=== PATIENT | male | born 1965 | race Caucasian/White ===

== ENCOUNTER 2016-12-31 18:12 | Inpatient (IN) | payer OTHER ==
[~2016-12-31] VITALS: Ht 175.3 cm; Wt 88.9 kg
[~2016-12-31 18:12] MED LIST: DEXAMETHASONE SOD PHOS 4 MG/ML VIAL IV ONE; GENTAMICIN SULFATE 80 MG/2 ML VIAL OTHER ONE; LACTATED RINGER'S 1000 ML INJ 2,000 ML IV ONE; LIDOCAINE HCL 1% PF 5 ML AMPULE OTHER ONE; MIDAZOLAM HCL 2 MG/2 ML VIAL IV ONE; ONDANSETRON HCL 4 MG/2 ML VIAL IV PUSH ONE; PROPOFOL 200 MG/20 ML AMP IV ONE; ROCURONIUM INJ 50 MG/5 ML SYRINGE IV PUSH ONE; fentaNYL CITRATE 250 MCG/5 ML AMP IV ONE
[2016-12-31 18:13] VITALS: BP 122/92; PULSE 103; RESP 20; TEMP 99.9; O2SAT 100
--- NOTE | 2016-12-31 19:30 | PD ---
HPI Chief Complaint: Abdominal Pain Time Seen by Provider: 19:12 Travel History International Travel<30 days: No Contact w/Intl Traveler<30days: No Traveled to known affect area: No History of Present Illness HPI Patient is a 51-year-old male with a history of cholecystitis and cholecystectomy presents emergency Department with abdominal pain nausea vomiting constipation for the past 4 days. Patient's also been having some chills did take Tylenol prior to arrival. Patient was seen by his physician's RAIL DOWELING MACHINE OPERATOR who suspected acute appendicitis today and referred him to the emergency department. Patient does endorse nausea without vomiting. Denies any blood in the stool. He does endorse right lower quadrant abdominal pain cramping in nature which initially started in the epigastric area. He states she's had pain like this in the past which was a gallstone flare but states she's not had in some time and this is more intense. PFSH Past Medical History Medical History: Denies Significant Hx Tetanus Vaccination: < 5 Years Past Surgical History Abdominal Surgery: Yes Cholecystectomy: Yes Social History Alcohol Use: No Tobacco Use: No Substance Use: No Allergies-Medications (Allergen,Severity, Reaction): Coded Allergies: morphine (Verified Allergy, Unknown, 12/31/16) Reported Meds & Prescriptions Reported Meds & Active Scripts Active No Active Prescriptions or Reported Medications Review of Systems Except as stated in HPI: all other systems reviewed are Neg Physical Exam Narrative GENERAL: Well-developed, uncomfortable in no obvious distress. Ill appearance. SKIN: Focused skin assessment warm/dry. HEAD: Atraumatic. Normocephalic. EYES: Pupils equal and round. No scleral icterus. No injection or drainage. ENT: No nasal bleeding or discharge. Mucous membranes pink and moist. NECK: Trachea midline. No JVD. CARDIOVASCULAR: Regular rate and rhythm. No murmur appreciated. RESPIRATORY: No accessory muscle use. Clear to auscultation. Breath sounds equal bilaterally. GASTROINTESTINAL: Abdomen soft, moderately tender in the right lower quadrant. moderately distended tympanic to percussion.. Hepatic and splenic margins not palpable. No peritoneal signs. MUSCULOSKELETAL: No obvious deformities. No clubbing. No cyanosis. No edema. NEUROLOGICAL: Awake and alert. No obvious cranial nerve deficits. Motor grossly within normal limits. Normal speech. PSYCHIATRIC: Appropriate mood and affect; insight and judgment normal. Data Data Last Documented VS Vital Signs Date Time Temp Pulse Resp B/P (MAP) Pulse Ox O2 Delivery O2 Flow Rate FiO2 12/31/16 20:09 89 18 140/79 (99) 98 Room Air 12/31/16 18:13 99.9 Orders Orders Complete Blood Count With Diff (12/31/16 19:34) Comprehensive Metabolic Panel (12/31/16 19:34) Lipase (12/31/16 19:34) Lactic Acid (12/31/16 19:34) Prothrombin Time / Inr (Pt) (12/31/16 19:34) Act Partial Throm Time (Ptt) (12/31/16 19:34) Urinalysis - C+S If Indicated (12/31/16 19:34) Ct Abd/Pel W Iv Contrast(Rout) (12/31/16 19:34) Iv Access Insert/Monitor (12/31/16 19:34) Ecg Monitoring (12/31/16 19:34) Oximetry (12/31/16 19:34) Hydromorphone Pf Inj (Dilaudid Pf Inj) (12/31/16 19:45) Ondansetron Inj (Zofran Inj) (12/31/16 19:45) Sodium Chlor 0.9% 1000 Ml Inj (Ns 1000 M (12/31/16 19:34) Sodium Chloride 0.9% Flush (Ns Flush) (12/31/16 19:45) Electrocardiogram (12/31/16 19:34) Iohexol 350 Inj (Omnipaque 350 Inj) (12/31/16 19:49) Piperacil-Tazo 4.5 Gm Premix (Zosyn 4.5 (12/31/16 20:45) Admit Order (Ed Use Only) (12/31/16 ) Labs Laboratory Tests Test 12/31/16 19:15 12/31/16 20:00 White Blood Count 18.3 TH/MM3 Red Blood Count 4.69 MIL/MM3 Hemoglobin 13.8 GM/DL Hematocrit 41.8 % Mean Corpuscular Volume 89.2 FL Mean Corpuscular Hemoglobin 29.3 PG Mean Corpuscular Hemoglobin Concent 32.9 % Red Cell Distribution Width 13.5 % Platelet Count 178 TH/MM3 Mean Platelet Volume 8.1 FL CBC Comment AUTO DIFF Differential Total Cells Counted 100 Neutrophils % (Manual) 83 % Band Neutrophils % 6 % Lymphocytes % 5 % Monocytes % 6 % Neutrophils # (Manual) 16.3 TH/MM3 Differential Comment FINAL DIFF MANUAL Platelet Morphology Comment NORMAL Red Cell Morphology Comment NORMAL Blood Urea Nitrogen 19 MG/DL Creatinine 1.21 MG/DL Random Glucose 132 MG/DL Total Protein 8.5 GM/DL Albumin 3.9 GM/DL Calcium Level 9.7 MG/DL Alkaline Phosphatase 110 U/L Aspartate Amino Transf (AST/SGOT) 23 U/L Alanine Aminotransferase (ALT/SGPT) 37 U/L Total Bilirubin 1.6 MG/DL Sodium Level 133 MEQ/L Potassium Level 3.7 MEQ/L Chloride Level 100 MEQ/L Carbon Dioxide Level 22.7 MEQ/L Anion Gap 10 MEQ/L Estimat Glomerular Filtration Rate 63 ML/MIN Lipase 92 U/L Prothrombin Time 13.0 SEC Prothromb Time International Ratio 1.2 RATIO Activated Partial Thromboplast Time 29.9 SEC Lactic Acid Level 2.1 mmol/L MDM Medical Decision Making Medical Screen Exam Complete: Yes Emergency Medical Condition: Yes Differential Diagnosis Pancreatitis, diverticulitis, intra-abdominal abscess. Narrative Course Patient roomed emergency department, highly suspect appendicitis on this patient , CAT scan confirms with a complication of periappendiceal abscess. Films were reviewed by Dr. Sanchez all her plan is for surgery. He does have an elevated white blood cell count lactic acid normal. Started on Zosyn and normal saline was given. Last 24 hours Impressions Abdomen/Pelvis CT 12/31/161933 Signed Impressions: Service Date/Time: Saturday, December 31, 2016 19:46 - CONCLUSION: 1. Acute appendicitis with a small periappendiceal abscess. Please see above. 2. No other acute abnormalities are demonstrated. Previous cholecystectomy. Fat complaining umbilical hernia. Danial Walton MD Diagnosis Primary Impression: Appendicitis Scripts No Active Prescriptions or Reported Meds Disposition: DISCHARGE HOME Condition: Stable Silvestre Mckinney MD Dec 31, 2016 19:30
[2016-12-31] MEDS ORDERED: SODIUM CHLOR 0.9% 1000 ML INJ 1,000 ML IV SCH (19:34)
[2016-12-31] MEDS ORDERED: HYDROmorphone HCL PF 2 MG/ML VIAL IVS ONE (19:45)
[2016-12-31] MEDS ORDERED: ONDANSETRON HCL 4 MG/2 ML VIAL IVP ONE (19:45)
[2016-12-31] MEDS ORDERED: SODIUM CHLORIDE 0.9% FLUSH 10 ML FLUSH IV FLUSH PRN (19:45)
[2016-12-31] MEDS ORDERED: IOHEXOL 350 MG/ML 10 ML VIAL (for RAD DIAG) IVCONTRAST ONE (19:49)
[2016-12-31 20:02] LABS: HEMATOCRIT 41.8 % (39.0-51.0); MEAN CELL VOLUME 89.2 FL (80.0-100.0); MEAN CORPUSCULAR HEMOGLOBIN 29.3 PG (27.0-34.0); MEAN CORPUSCULAR HGB CONC 32.9 % (32.0-36.0); PLATELET COUNT 178 TH/MM3 (150-450); RED BLOOD COUNT 4.69 MIL/MM3 (4.50-5.90); RED CELL DISTRIBUTION WIDTH 13.5 % (11.6-17.2); WHITE BLOOD COUNT 18.3 TH/MM3 (4.0-11.0)
[2016-12-31 20:07] LABS: HEMO FLAGS AUTO DIFF
[2016-12-31 20:08] VITALS: O2SAT 98
[2016-12-31 20:09] VITALS: BP 140/79; PULSE 89; RESP 18; O2SAT 98
--- NOTE | 2016-12-31 20:15 | RADRPT ---
EXAM DATE/TIME: 12/31/2016 19:46 [facility] COMPARISON: No previous studies available for comparison. INDICATIONS : Right lower quadrant abdomen pain. IV CONTRAST: 100 cc Omnipaque 350 (iohexol) IV ORAL CONTRAST: No oral contrast ingested. RADIATION DOSE: 8.00 CTDIvol (mGy) MEDICAL HISTORY : None SURGICAL HISTORY : Cholecystectomy. ENCOUNTER: Initial ACUITY: 1 day PAIN SCALE: 8/10 LOCATION: Right lower quadrant abdomen TECHNIQUE: Volumetric scanning of the abdomen and pelvis was performed. Using automated exposure control and ad justment of the mA and/or kV according to patient size, radiation dose was kept as low as reasonably achievable to obtain optimal diagnostic quality images. DICOM format image data is available electro nically for review and comparison. FINDINGS: LOWER LUNGS: The visualized lower lungs are clear. LIVER: Homogeneous density without lesion. There is no dilation of the biliary tree. Previous cholecystecto my. SPLEEN: Normal size without lesion. PANCREAS: Within normal limits. KIDNEYS: Normal in size and shape. There is no mass, stone or hydronephrosis. ADRENAL GLANDS: Within normal limits. VASCULAR: There is no aortic aneurysm. BOWEL/MESENTERY: Indurated appendix with surrounding fat stranding and shotty right lower quadrant mesenteric lymph no natan. Probable fecalith at the base of the appendix small pocket of fluid and gas seen adjacent to the appendix measuring 11 x 23 x 35 mm in size compatible with an abscess. No obstruction or large free air. There is small free fluid in the pelvic cavity. ABDOMINAL WALL: There is a fat containing umbilical hernia that measures 4.4 cm across. No bowel herniation. RETROPERITONEUM: There is no lymphadenopathy. BLADDER: No wall thickening or mass. REPRODUCTIVE: Within normal limits. INGUINAL: There is no lymphadenopathy or hernia. MUSCULOSKELETAL: No acute bony abnormality demonstrated. Degenerative changes and a few scattered benign hemangiomas a re seen of the spine. CONCLUSION: 1. Acute appendicitis with a small periappendiceal abscess. Please see above. 2. No other acute abnormalities are demonstrated. Previous cholecystectomy. Fat complaining umbilical hernia. Danial Walton MD on December 31, 2016 at 20:10 Board Certified Radiologist. This report was verified electronically.
[2016-12-31 20:19] LABS: ANION GAP 10 MEQ/L (5-15); AST (GOT) 23 U/L (15-37); BICARBONATE 22.7 MEQ/L (21.0-32.0); BLOOD UREA NITROGEN 19 MG/DL (7-18); CHLORIDE 100 MEQ/L (98-107); GLOMERULAR FILTRATION RATE 63 ML/MIN (>89); POTASSIUM 3.7 MEQ/L (3.5-5.1); SODIUM (NA) 133 MEQ/L (136-145)
[2016-12-31 20:20] LABS: ALT (GPT) 37 U/L (12-78)
[2016-12-31 20:23] LABS: ALKALINE PHOSPHATASE 110 U/L (45-117); TOTAL BILIRUBIN ADULT 1.6 MG/DL (0.2-1.0)
[2016-12-31 20:40] LABS: BANDS 6 % (0-6); NEUTROPHIL # MANUAL DIFF 16.3 TH/MM3 (1.8-7.7); POLYS (SEG NEUTROPHILS) 83 % (16-70); WBC DIFF SAMPLE 100
[2016-12-31 20:41] LABS: PLATELET MORPHOLOGY NORMAL (NORMAL); SCAN/DIFF FINAL DIFF MANUAL
[2016-12-31] MEDS ORDERED: PIPERACIL-TAZO 4.5 GM PREMIX 100 ML IV ONE (20:45)
[2016-12-31 20:58] LABS: APTT (PATIENT) 29.9 SEC (24.3-30.1); INTERNATIONAL NORMALIZED RATIO 1.2 RATIO
[2016-12-31] MEDS ORDERED: SODIUM CHLOR 0.9% 1000 ML INJ 1,000 ML IV ONE (21:15)
[2016-12-31 21:54] VITALS: BP 137/78; PULSE 87; RESP 18; O2SAT 98
[2016-12-31] MEDS ORDERED: SUGAMMADEX SODIUM 200 MG/2 ML VIAL IV PUSH ONE ×2 (23:38)
[2016-12-31 23:46] LABS: BLOOD, URINE NEG (NEG); COMMENT (UR) CULT NOT INDICATED; CULTURE IF INDICATED CULT NOT INDICATED; GLUCOSE,URINE NEG (NEG); KETONE, URINE NEG (NEG); NITRITE,URINE NEG (NEG); SQUAMOUS EPITHELIAL CELL URINE <1 /hpf (0-5); URINE COLOR YELLOW (YELLW/STRAW)
[2017-01-01] VITALS (8 sets, daily range): BP systolic 101–120; BP diastolic 65–69; PULSE 52–86; RESP 16–18; TEMP 95.2–98.1; O2SAT 93–97
[2017-01-01] MEDS ORDERED: DO NOT ADM ANY ANTICOAGULANT DRUGS PRN
[2017-01-01] MEDS ORDERED: diphenhydrAMINE HCL 50 MG/ML VIAL IV PRN (00:15)
[2017-01-01] MEDS ORDERED: SODIUM CHLORIDE 0.9% FLUSH 10 ML FLUSH IV FLUSH PRN (00:15)
[2017-01-01] MEDS ORDERED: BENZOCAINE 20% ORAL SPR 60 ML CAN MT PRN (00:15)
[2017-01-01] MEDS ORDERED: ONDANSETRON HCL 4 MG/2 ML VIAL IV PRN (00:15)
[2017-01-01] MEDS ORDERED: Post-op Orders (for Pharmacy) MISC XX ONE (00:15)
[2017-01-01] MEDS ORDERED: IBUPROFEN 400 MG TAB PO PRN (00:15)
[2017-01-01] MEDS ORDERED: KETOROLAC TROMETHAMINE 30 MG/ML (IVP) VIAL IV PUSH PRN (00:15)
[2017-01-01] MEDS ORDERED: NALOXONE HCL 0.4 MG/ML AMP IV PUSH PRN (00:15)
[2017-01-01] MEDS ORDERED: MAGNESIUM HYDROXIDE SUSP 30 ML CUP PO PRN (00:15)
[2017-01-01] MEDS: D5-NS + KCL 20 MEQ INJ 1,000 ML IV SCH ×4 (00:30→23:34)
[2017-01-01] MEDS: ACETAMINOPHEN 1000 MG/100 ML VIAL IV SCH ×5 (00:45→23:34)
[2017-01-01] MEDS: PIPERACIL-TAZO 3.375 GM PREMIX 50 ML IV SCH ×4 (04:07→20:29)
[2017-01-01] MEDS: metroNIDAZOLE 500 MG TAB PO SCH ×4 (05:31→23:34)
--- NOTE | 2017-01-01 06:30 | MH ---
cc: KEYSHAWN HOLLEY DATE OF ADMISSION: 12/31/2016 CHIEF COMPLAINT Acute appendicitis. HISTORY OF PRESENT ILLNESS The patient is a 51-year-old male who was in his normal state of health until 40 hours ago he developed development of increasingly severe right lower quadrant pain. The patient is a does have some chronic pain ever since a cholecystectomy was performed several years ago. He states that his pain was different and worse. The patient denies nausea, vomiting, fevers, chills, night sweats, diarrhea, constipation and hematomesis. He underwent work up at [facility] emergency department with a CT scan which did show acute appendicitis with rupture as well as an elevated white blood cell count on laboratory values. General surgery was consulted in the emergency department. REVIEW OF SYSTEMS 12-point review of systems, discussed with the patient and he is negative except for the pertinent positives mentioned above in history present illness. PAST MEDICAL HISTORY None PAST SURGICAL HISTORY Cholecystectomy laparoscopic, multiple ERCP for complications. ALLERGIES MORPHINE HOME MEDICATIONS: None. SOCIAL HISTORY: The patient denies alcohol, tobacco or illicit drug use. PHYSICAL EXAMINATION VITAL SIGNS: Temperature 99.9 degrees, pulse 89 lesser rate 18, blood pressure 140/79. IN GENERAL: The patient is a well-developed, well-nourished male in no acute distress. He appears uncomfortable and does not appear chronically ill. HEAD, EYES, EARS, NOSE, AND THROAT: Head is normocephalic, atraumatic. Pupils round, to light. Sclerae is anicteric. Mucous membranes moist. NECK: Neck is supple. No JVD. LUNGS: Clear to auscultation bilaterally. Nonlabored breathing pattern. HEART: The heart is a regular rhythm. ABDOMEN: The abdomen is soft. He is tender to palpation, focal rebound tenderness in the right lower quadrant and signs of peritonitis. There is no diffuse peritonitis or rigid abdomen. There is some multiple surgical scars consistent with previous cholecystectomy. No hernias. BACK: No CVA tenderness. Extremities: No clubbing, cyanosis or edema. NEUROLOGIC: He is awake, alert and oriented x3. Nonfocal peripheral exam. Cranial nerves II-XII are grossly intact. ASSESSMENT/PLAN The patient is a 51-year-old male with 2 days right lower quadrant pain and concerning for ruptured appendicitis on CT scan. I discussed with the patient options including operative nonoperative management. I did recommend proceeding to the operating room with for laparoscopic appendectomy and drainage of intra-abdominal abscess. The discussed the risks and benefits and alternatives including high risk of recurrent infection and complications due to the perforated nature of the appendicitis. The patient and his agree and undergo the procedure. We will proceed to the operating room emergently for appendectomy. We will keep the patient n.p.o.. Continue IV fluids and antibiotics. MD RACHELLE Kessler/josey /12:16 AM /6:21 AM
--- NOTE | 2017-01-01 08:46 | HHI.PR ---
Subjective Subjective Notes feels better Objective Vitals/I&O Vital Signs Date Time Temp Pulse Resp B/P (MAP) Pulse Ox O2 Delivery O2 Flow Rate FiO2 01/01/17 04:00 95.8 70 17 101/65 (77) 97 01/01/17 00:45 Nasal Cannula 4 Labs Laboratory Tests Test 12/31/16 19:15 12/31/16 20:00 12/31/16 21:49 White Blood Count 18.3 Red Blood Count 4.69 Hemoglobin 13.8 Hematocrit 41.8 Mean Corpuscular Volume 89.2 Mean Corpuscular Hemoglobin 29.3 Mean Corpuscular Hemoglobin Concent 32.9 Red Cell Distribution Width 13.5 Platelet Count 178 Mean Platelet Volume 8.1 CBC Comment AUTO DIFF Differential Total Cells Counted 100 Neutrophils % (Manual) 83 Band Neutrophils % 6 Lymphocytes % 5 Monocytes % 6 Neutrophils # (Manual) 16.3 Differential Comment FINAL DIFF MANUAL Platelet Morphology Comment NORMAL Red Cell Morphology Comment NORMAL Blood Urea Nitrogen 19 Creatinine 1.21 Random Glucose 132 Total Protein 8.5 Albumin 3.9 Calcium Level 9.7 Alkaline Phosphatase 110 Aspartate Amino Transf (AST/SGOT) 23 Alanine Aminotransferase (ALT/SGPT) 37 Total Bilirubin 1.6 Sodium Level 133 Potassium Level 3.7 Chloride Level 100 Carbon Dioxide Level 22.7 Anion Gap 10 Estimat Glomerular Filtration Rate 63 Lipase 92 Prothrombin Time 13.0 Prothromb Time International Ratio 1.2 Activated Partial Thromboplast Time 29.9 Lactic Acid Level 2.1 Urine Color YELLOW Urine Turbidity CLEAR Urine pH 6.0 Urine Specific [place] GREATER THAN 1.050 Urine Protein 30 Urine Glucose (UA) NEG Urine Ketones NEG Urine Occult Blood NEG Urine Nitrite NEG Urine Bilirubin NEG Urine Urobilinogen LESS THAN 2.0 Urine Leukocyte Esterase NEG Urine RBC 1 Urine WBC LESS THAN 1 Urine Squamous Epithelial Cells <1 Microscopic Urinalysis Comment CULT NOT INDICATED Cardiovascular: Regular Lungs: Clear Abdomen: Non-distended, Post-op tenderness Extremities: No edema, Perfused A/P Assessment and Plan 56yo male s/p lap appy for complicated appendicitis, stable. drain clear pain ok OOB continue ABX possible DC Tuesday Jorge Maria MD Jan 01, 2017 08:46
[2017-01-01] MEDS: FAMOTIDINE 20 MG/2 ML VIAL IV PUSH SCH ×2 (08:53→20:29)
[2017-01-01] MEDS: SODIUM CHLORIDE 0.9% FLUSH 10 ML FLUSH IV FLUSH SCH ×2 (09:00→20:30)
--- NOTE | 2017-01-01 09:18 | EKG ---
Date Performed: 12/31/2016 Time Performed: 20:11:45 PTAGE: 51 years EKG: Sinus rhythm NONSPECIFIC T-WAVE ABNORMALITY BORDERLINE ECG NO PREVIOUS TRACING DOCTOR: Ricki Marshall Interpretating Date/Time 01/01/2017 09:17:44
[2017-01-01] MEDS: HEPARIN SODIUM - SQ 10,000 UNITS/ML VIAL SQ SCH (22:00)
[2017-01-02] VITALS: BP 107/62; PULSE 73; RESP 20; TEMP 96.1; O2SAT 97
[2017-01-02] MEDS: PIPERACIL-TAZO 3.375 GM PREMIX 50 ML IV SCH ×4 (01:54→19:46)
[2017-01-02] MEDS: metroNIDAZOLE 500 MG TAB PO SCH ×3 (06:09→18:05)
[2017-01-02] MEDS: ACETAMINOPHEN 1000 MG/100 ML VIAL IV SCH ×3 (06:09→18:08)
[2017-01-02] MEDS: HEPARIN SODIUM - SQ 10,000 UNITS/ML VIAL SQ SCH ×3 (06:10→21:45)
[2017-01-02 07:26] LABS: AUTOMATED NEUTROPHIL # 9.4 TH/MM3 (1.8-7.7); BASOPHIL % 0.2 % (0.0-2.0); EOSINOPHIL # 0.1 TH/MM3 (0-0.4); EOSINOPHIL % 0.9 % (0.0-4.0); HEMATOCRIT 34.7 % (39.0-51.0); HEMO FLAGS DIFF FINAL; LYMPH % 13.9 % (9.0-44.0); LYMPHOCYTE # 1.7 TH/MM3 (1.0-4.8); MEAN CELL VOLUME 89.3 FL (80.0-100.0); MEAN CORPUSCULAR HEMOGLOBIN 29.8 PG (27.0-34.0); MEAN CORPUSCULAR HGB CONC 33.4 % (32.0-36.0); MONO % 5.7 % (0.0-8.0); NEUT % 79.3 % (16.0-70.0); PLATELET COUNT 170 TH/MM3 (150-450); RED BLOOD COUNT 3.89 MIL/MM3 (4.50-5.90); RED CELL DISTRIBUTION WIDTH 13.8 % (11.6-17.2); WHITE BLOOD COUNT 11.9 TH/MM3 (4.0-11.0)
[2017-01-02 07:58] VITALS: O2SAT 96
[2017-01-02 08:00] VITALS: BP 110/74; PULSE 70; RESP 16; TEMP 96.9; O2SAT 95
[2017-01-02 08:07] LABS: BICARBONATE 21.2 MEQ/L (21.0-32.0); POTASSIUM 3.9 MEQ/L (3.5-5.1)
--- NOTE | 2017-01-02 08:28 | HHI.PR ---
Subjective Subjective Notes no acute issues, pain controlled diarrhea Objective Vitals/I&O Vital Signs Date Time Temp Pulse Resp B/P (MAP) Pulse Ox O2 Delivery O2 Flow Rate FiO2 01/02/17 07:58 96 21 01/02/17 00:00 96.1 73 20 107/62 (77) 01/01/17 00:45 Nasal Cannula 4 Labs Laboratory Tests Test 01/02/17 07:11 White Blood Count 11.9 Red Blood Count 3.89 Hemoglobin 11.6 Hematocrit 34.7 Mean Corpuscular Volume 89.3 Mean Corpuscular Hemoglobin 29.8 Mean Corpuscular Hemoglobin Concent 33.4 Red Cell Distribution Width 13.8 Platelet Count 170 Mean Platelet Volume 7.6 Neutrophils (%) (Auto) 79.3 Lymphocytes (%) (Auto) 13.9 Monocytes (%) (Auto) 5.7 Eosinophils (%) (Auto) 0.9 Basophils (%) (Auto) 0.2 Neutrophils # (Auto) 9.4 Lymphocytes # (Auto) 1.7 Monocytes # (Auto) 0.7 Eosinophils # (Auto) 0.1 Basophils # (Auto) 0.0 CBC Comment DIFF FINAL Differential Comment Blood Urea Nitrogen 12 Creatinine 1.06 Random Glucose 119 Calcium Level 8.5 Sodium Level 141 Potassium Level 3.9 Chloride Level 111 Carbon Dioxide Level 21.2 Anion Gap 9 Estimat Glomerular Filtration Rate 74 Abdomen: Other (minimal distension, incisions c/d/i, iman serosang) A/P Assessment and Plan s/p lap appy with iman PLAN advance to fulls oob pain control iman sxn dvt ppx Lalito Conklin MD Jan 02, 2017 08:28
[2017-01-02] MEDS: SODIUM CHLORIDE 0.9% FLUSH 10 ML FLUSH IV FLUSH SCH ×2 (08:53→19:45)
[2017-01-02] MEDS: D5-NS + KCL 20 MEQ INJ 1,000 ML IV SCH ×2 (08:53→16:08)
[2017-01-02] MEDS: FAMOTIDINE 20 MG/2 ML VIAL IV PUSH SCH ×2 (09:00→19:47)
[2017-01-02 12:00] VITALS: BP 117/73; PULSE 71; RESP 18; TEMP 98.1; O2SAT 96
[2017-01-02 16:00] VITALS: BP 124/75; PULSE 73; RESP 18; TEMP 97.8; O2SAT 95
[2017-01-02 20:00] VITALS: BP 125/77; PULSE 92; RESP 20; TEMP 98.7; O2SAT 96
[2017-01-03] VITALS: BP 133/80; PULSE 82; RESP 20; TEMP 98.7; O2SAT 96
[2017-01-03] MEDS: metroNIDAZOLE 500 MG TAB PO SCH ×4 (00:14→17:50)
[2017-01-03] MEDS: D5-NS + KCL 20 MEQ INJ 1,000 ML IV SCH ×4 (00:14→20:59)
[2017-01-03] MEDS: PIPERACIL-TAZO 3.375 GM PREMIX 50 ML IV SCH ×4 (01:36→20:52)
[2017-01-03] MEDS: HEPARIN SODIUM - SQ 10,000 UNITS/ML VIAL SQ SCH ×3 (05:21→20:54)
[2017-01-03 08:00] VITALS: BP 134/74; PULSE 91; RESP 20; TEMP 98.3; O2SAT 95
[2017-01-03] MEDS: FAMOTIDINE 20 MG/2 ML VIAL IV PUSH SCH ×2 (08:41→21:00)
[2017-01-03] MEDS: SODIUM CHLORIDE 0.9% FLUSH 10 ML FLUSH IV FLUSH SCH ×2 (08:41→20:53)
--- NOTE | 2017-01-03 10:52 | HHI.PR ---
Subjective Subjective Notes Had several episodes of emesis last night Nausea this AM Not taking anything PO at bedside Objective Vitals/I&O Vital Signs Date Time Temp Pulse Resp B/P (MAP) Pulse Ox O2 Delivery O2 Flow Rate FiO2 01/03/17 08:00 98.3 91 20 134/74 (94) 95 01/02/17 07:58 21 01/01/17 00:45 Nasal Cannula 4 Cardiovascular: Regular Lungs: Clear Abdomen: Other (lap sites c/d/i; MARY with purulent drainage; abdomen tender and distended ) Extremities: No edema A/P Assessment and Plan 51 year old male POD2 lap appy; perforated -Likely has post op ileus from perforated appendicitis -Continue IVF -Continue IV antibiotics -Okay for sips of clear liquids -CBC this AM -OOB and mobilize as tolerated -Discussed with Mr. Damian and ---all questions answered Attending Statement The exam, history, and the medical decision-making described in the above note were completed with the assistance of the mid-level provider. I reviewed and agree with the findings presented. I attest that I had a [id number] encounter with the patient on the same day, and personally performed and documented my assessment and findings in the medical record. Abdominal exam: soft, postop tenderness, drain with purulent drainage pain ok, tolerating some liquids Michelle Cruz Jan 03, 2017 10:52 Jorge Maria MD Jan 18, 2017 23:49
--- NOTE | 2017-01-03 11:29 | MP ---
cc: KEYSHAWN HOLLEY DATE OF SURGERY 12/31/2016 PREOPERATIVE DIAGNOSIS Acute complicated appendicitis. POSTOPERATIVE DIAGNOSES 1. Acute complicated appendicitis with diffuse peritonitis. 1. Purulent peritonitis. PROCEDURE 1. Laparoscopic appendectomy. 1. Laparoscopic drainage of intraabdominal abscess. ATTENDING SURGEON MD Candace FLAT SPRING ASSEMBLER Staff. ANESTHESIA General and local anesthetic. BLOOD LOSS 25 cc. FINDINGS A gangrenous and ruptured appendix in the right lower quadrant in normal anatomic position with diffuse abdominal purulent peritonitis with a focal purulent fluid collection in the periappendiceal area consistent with imaging. INDICATION FOR PROCEDURE The patient is a 51-year-old male with two days of right lower quadrant pain and CT scan showing likely complicated appendicitis. The risks, benefits and alternatives were discussed with the patient prior to the procedure and the patient agreed to undergo the procedure. PROCEDURE The patient was taken to the operating and placed in the supine position and placed under general endotracheal anesthesia. The patient's abdomen was shaved, prepped and draped in a sterile fashion. Time-out was performed. The abdomen was entered through Dante direct entry technique at the patient's previous periumbilical site. We used local anesthetic at this site as well as all sites. We incised the skin with a 15 blade scalpel and then gently spread down through the patient's previous scar. We easily entered the abdominal cavity bluntly and placed a 10-mm balloon trocar into the abdomen under direct visualization. We surveyed the abdomen with the 5-mm, 30-degree camera. There was no evidence of any complication from our entry. We placed a 5-mm port in the suprapubic position and a second 5-mm port in the left lower quadrant under direct visualization of the laparoscope. We were able to visualize the abdomen and survey the abdomen. There was a gangrenous perforated appendicitis in the right lower quadrant with a focal periappendiceal abscess as well as diffuse purulent peritonitis throughout the abdomen most notably in the pelvis and right upper quadrant.. At this point in time we were able to dissect the base of the appendix as a it joined the cecum and this was mildly inflamed and injected but there was no necrosis over or nonviable tissue in this area. The perforation was about mid-appendix. We made a window at the base of this easily with [place] dissector and used the white load on and she Aptos Ethicon laparoscopic stapler to divide the base of the appendix as it splayed into the cecum. We used two loads on the Aptos stapler also to divide the appendiceal mesentery. The appendix was removed from the abdomen with the EndoCatch bag. Then used 3 liters of gentamicin irrigation to irrigate out the abdomen including all four quadrants, paying particular attention to the pelvis in the right lower quadrant. All succinate was clear and he had excellent hemostasis. There was some small dripping from the staple line at the mesentery and we did place some hemoclips in this area. We placed a 19-Yemeni round Khoi drain to the suprapubic #5 port and placed this looped in the pelvis and at the right lower quadrant. We sutured this in place with nylon suture. We turned our attention towards completion. We removed all ports under visualization of the laparoscope and expressed pneumoperitoneum after we had relocated the omentum over the abdomen in the right lower quadrant. We then closed the Dante periumbilical fascial defect with a running 0 Vicryl suture. We closed the skin with 4-0 Monocryl and Dermabond. Khoi drain was placed to bulb suction. The patient was discontinued from anesthesia and taken to PACU in stable addition. The patient tolerated procedure well with no apparent complications. All counts were correct. I was present and scrubbed for the entire procedure. MD RACHELLE Kessler/EDILMA /12:20 AM /11:12 AM
[2017-01-03 12:00] VITALS: BP 141/79; PULSE 79; RESP 19; TEMP 98.8; O2SAT 95
[2017-01-03 14:04] LABS: AUTOMATED NEUTROPHIL # 5.7 TH/MM3 (1.8-7.7); BASOPHIL % 0.6 % (0.0-2.0); EOSINOPHIL # 0.3 TH/MM3 (0-0.4); EOSINOPHIL % 3.5 % (0.0-4.0); HEMATOCRIT 32.9 % (39.0-51.0); HEMO FLAGS DIFF FINAL; LYMPH % 16.7 % (9.0-44.0); LYMPHOCYTE # 1.3 TH/MM3 (1.0-4.8); MEAN CELL VOLUME 89.3 FL (80.0-100.0); MEAN CORPUSCULAR HEMOGLOBIN 29.5 PG (27.0-34.0); MEAN CORPUSCULAR HGB CONC 33.1 % (32.0-36.0); MONO % 7.2 % (0.0-8.0); PLATELET COUNT 195 TH/MM3 (150-450); RED BLOOD COUNT 3.69 MIL/MM3 (4.50-5.90); RED CELL DISTRIBUTION WIDTH 13.5 % (11.6-17.2); WHITE BLOOD COUNT 7.9 TH/MM3 (4.0-11.0)
[2017-01-03 16:00] VITALS: BP 147/78; PULSE 74; RESP 19; TEMP 99; O2SAT 95
[2017-01-03 20:00] VITALS: BP 134/85; PULSE 67; RESP 20; TEMP 98.4; O2SAT 96
[2017-01-04] MEDS: metroNIDAZOLE 500 MG TAB PO SCH ×3 (00:18→12:15)
[2017-01-04 00:49] VITALS: BP 134/77; PULSE 75; RESP 18; TEMP 98.5; O2SAT 93
[2017-01-04] MEDS: D5-NS + KCL 20 MEQ INJ 1,000 ML IV SCH (05:43)
[2017-01-04] MEDS: PIPERACIL-TAZO 3.375 GM PREMIX 50 ML IV SCH ×2 (05:50→07:48)
[2017-01-04] MEDS: HEPARIN SODIUM - SQ 10,000 UNITS/ML VIAL SQ SCH (05:57)
[2017-01-04] MEDS: SODIUM CHLORIDE 0.9% FLUSH 10 ML FLUSH IV FLUSH SCH (07:48)
[2017-01-04 08:00] VITALS: BP 140/88; PULSE 59; RESP 19; TEMP 96.9; O2SAT 96
[2017-01-04] MEDS: FAMOTIDINE 20 MG/2 ML VIAL IV PUSH SCH (08:45)
[2017-01-04] MEDS ORDERED: IBUPROFEN 400 MG TAB PO PRN (10:00)
[2017-01-04] MEDS ORDERED: AMOXICILLIN/CLAVULANATE K 875 MG TAB PO SCH (14:00)
--- NOTE | 2017-01-27 15:08 | HHI.DS ---
Discharge Summary Admission Date Dec 31, 2016 at 20:59 Discharge Date: Jan 04, 2017 Admitting Diagnosis Sepsis, Appendicitis. Brief History 51 year old male s/p lap appy; perforated PE at Discharge Alert and awake Cardio: RRR Resp: CTAB Abd: soft; minimally tender; MARY with serous drainage; lap sites c/d/i Hospital Course This is a 51 year old male s/p lap appy; perforated. The patient did have a postoperative ileus from perforated appendicitis. The patient's diet was advanced as tolerated to a regular diet. The patient's pain was controlled using oral pain medications. The patient was transitioned to by mouth antibiotics. The patient will be discharged home with MARY drain and instructions on how to care for the drain. The patient will follow-up in the office as indicated on the discharge information. Pt Condition on Discharge: Good Discharge Disposition: Discharge Home Discharge Instructions DIET: Follow Instructions for: As Tolerated, No Restrictions Activities you can perform: See Additionl Instruction Other Activity Instructions: Okay to shower; pat incisions dry Routine drain care Michelle Cruz Jan 27, 2017 15:08
== END 2017-01-04 13:21 | disposition home or self-care (01) | DRG 339 ==
LOC: NEPE 18:12 → NEDA 20:59 → N07A 01-01 00:53
PROVIDERS: ADMIT Surgery; ATTEND Surgery
PROC: 0DTJ4ZZ Resection of Appendix, Percutaneous Endoscopic Approach (ICD-10-PCS; principal; 2016-12-31 22:40)
DX: K35.3 Acute appendicitis with localized peritonitis (principal); K56.7 Ileus, unspecified; K91.89 Other postprocedural complications and disorders of digestive system
CPT/HCPCS: 74177; 80048; 80053; 81001; 83605; 83690; 85007; 85025; 85027; 85610; 85730; 88304; 93005; 94150; 96361; 96374; 96375; J0131; J1100; J1170; J1580; J1644; J1885; J2250; J2405; J2543; J3010; J3480; J7030; J7120; Q9967

== ENCOUNTER 2017-09-09 08:28 | Emergency (ER) | payer OTHER ==
[~2017-09-09] VITALS: Ht 175.3 cm; Wt 80.0 kg
[2017-09-09 08:35] VITALS: BP 92/53; PULSE 50; RESP 16; TEMP 97.6; O2SAT 100
[2017-09-09 09:16] VITALS: BP 147/86; PULSE 57; RESP 18; O2SAT 100
--- NOTE | 2017-09-09 09:33 | PD ---
HPI Chief Complaint: Fall Time Seen by Provider: 09:09 Travel History International Travel<30 days: No Contact w/Intl Traveler<30days: No Traveled to known affect area: No History of Present Illness HPI This patient fell off of a roof. Duration 1 hour. He says he fell 8 or 9 feet onto grass. He slid off the roof on his stomach feet first. He landed on his knees. He was able to get up and is walking around. His chief complaint is laceration to the left hand. He also has a small laceration on his right hand. He is not having any acute pain other than his lacerations. He did not strike his head or neck. No LOC. He has no chest pain or shortness of breath or abdominal pain or back pain. He has no pain in his extremities other than the fingers. He is ambulatory. Symptom severity is mild. No alleviating factors. No exacerbating factors. PFSH Past Medical History Cancer: No Chemotherapy: No Diabetes: No Diminished Hearing: No Hypertension: Yes Medical other: Yes (sinus headache ) Psychiatric: No Immunizations Current: Yes Radiation Therapy: No Thyroid Disease: No Tetanus Vaccination: < 5 Years Influenza Vaccination: No Past Surgical History Abdominal Surgery: Yes (GALLBLADDER REMOVED) Appendectomy: Yes Cholecystectomy: Yes Other Surgery: Yes Social History Alcohol Use: No Tobacco Use: No Substance Use: No Allergies-Medications (Allergen,Severity, Reaction): Coded Allergies: morphine (Verified Allergy, Unknown, 09/09/17) Reported Meds & Prescriptions Reported Meds & Active Scripts Active Bactrim DS (Sulfamethoxazole-Trimethoprim) 800-160 Mg Tab 1 Tab PO BID Review of Systems General / Constitutional: No: Fever Eyes: No: Visual changes HENT: No: Headaches Cardiovascular: No: Chest Pain or Discomfort Respiratory: No: Shortness of Breath Gastrointestinal: No: Abdominal Pain Genitourinary: No: Dysuria Musculoskeletal: Positive: Pain Skin: No Rash Neurologic: No: Weakness Psychiatric: No: Depression Endocrine: No: Polydipsia Hematologic/Lymphatic: No: Easy Bruising Physical Exam Narrative GENERAL: Well-nourished, well-developed patient in no apparent distress. SKIN: Focused skin assessment reveals no rash and nodules. Skin is Warm and dry. HEAD: Atraumatic. Normocephalic. EYES: Pupils equal and round. No scleral icterus. No injection or drainage. ENT: No nasal bleeding or discharge. Mucous membranes pink and moist. NECK: Trachea midline. No JVD. CARDIOVASCULAR: Regular rate and rhythm. No murmur appreciated. RESPIRATORY: No accessory muscle use. Clear to auscultation. Breath sounds equal bilaterally. GASTROINTESTINAL: Abdomen soft, non-tender, nondistended. Hepatic and splenic margins not palpable. MUSCULOSKELETAL: No obvious deformities. No clubbing. No cyanosis. No edema. He has abrasion to the anterior chest and abdomen but no tenderness. He has a 1 cm laceration to the right hyperthenar eminence. He has laceration to the third fourth and fifth finger of the left hand. These are all just above the PIP joint. He has good flexion strength of the fifth finger but seems to be somewhat weaker on the third and fourth finger. Cap refill is normal NEUROLOGICAL: Awake and alert. No obvious cranial nerve deficits. Motor grossly within normal limits. Normal speech. PSYCHIATRIC: Appropriate mood and affect; insight and judgment normal. Data Data Last Documented VS Vital Signs Date Time Temp Pulse Resp B/P (MAP) Pulse Ox O2 Delivery O2 Flow Rate FiO2 09/09/17 10:18 97.8 57 15 108/67 (81) 97 Room Air Orders Orders Chest, Single Ap (09/09/17 ) Pelvis, Ap Only (Routine) (09/09/17 ) Iv Access Insert/Monitor (09/09/17 09:22) Complete Blood Count With Diff (09/09/17 09:22) Basic Metabolic Panel (Bmp) (09/09/17 09:22) Prothrombin Time / Inr (Pt) (09/09/17 09:22) Act Partial Throm Time (Ptt) (09/09/17 09:22) Lidocaine Pf 1% Inj (Xylocaine-Mpf 1% In (09/09/17 10:30) Splint Or Brace Apply/Monitor (09/09/17 11:22) Mandatory Outpatient Referral (09/09/17 11:22) Labs Laboratory Tests Test 09/09/17 09:25 White Blood Count 6.9 TH/MM3 Red Blood Count 4.51 MIL/MM3 Hemoglobin 13.1 GM/DL Hematocrit 39.4 % Mean Corpuscular Volume 87.3 FL Mean Corpuscular Hemoglobin 29.1 PG Mean Corpuscular Hemoglobin Concent 33.3 % Red Cell Distribution Width 13.7 % Platelet Count 225 TH/MM3 Mean Platelet Volume 7.7 FL Neutrophils (%) (Auto) 53.9 % Lymphocytes (%) (Auto) 33.5 % Monocytes (%) (Auto) 5.3 % Eosinophils (%) (Auto) 6.3 % Basophils (%) (Auto) 1.0 % Neutrophils # (Auto) 3.7 TH/MM3 Lymphocytes # (Auto) 2.3 TH/MM3 Monocytes # (Auto) 0.4 TH/MM3 Eosinophils # (Auto) 0.4 TH/MM3 Basophils # (Auto) 0.1 TH/MM3 CBC Comment DIFF FINAL Differential Comment Prothrombin Time 11.2 SEC Prothromb Time International Ratio 1.1 RATIO Activated Partial Thromboplast Time 24.1 SEC Blood Urea Nitrogen 22 MG/DL Creatinine 1.26 MG/DL Random Glucose 209 MG/DL Calcium Level 9.2 MG/DL Sodium Level 138 MEQ/L Potassium Level 4.0 MEQ/L Chloride Level 108 MEQ/L Carbon Dioxide Level 19.7 MEQ/L Anion Gap 10 MEQ/L Estimat Glomerular Filtration Rate 60 ML/MIN MDM Medical Decision Making Medical Screen Exam Complete: Yes Emergency Medical Condition: Yes Medical Record Reviewed: Yes Differential Diagnosis Rib fracture, contusion, laceration Narrative Course I have reviewed the patient's electronic medical record. Patient's initial blood pressure on check in was 90/52 This got my attention and I prioritized his care. However we first reassess his blood pressure in is 147/82 and his pulses in the 50s. He basically is asymptomatic which is amazing after falling off of a roof. I do not think he needs to be made a trauma alert. In fact, I do not think he needs CAT scanning. His abrasions to his torso were obtained as he scraped his front along the roof before he even fell. He has been ambulatory for an hour. I am ordering a chest and pelvis x-rays IV placed and labs sent Patient's labs are normal and his x-ray of chest and pelvis is normal Turns out the patient landed off the roof on his hands and knees soft Erica grass oil and thankfully did not do any dangerous injuries to himself He has left third and fourth finger flexor tendon injury Case was discussed with Dr. Fajardo who will see the patient in follow-up Patient has been splinted to his specification and sutured I wrote him some antibiotic His tetanus is up-to-date Blood pressures remained normal throughout and he never had tachycardia Diagnosis Primary Impression: Fall from, out of or through roof, initial encounter Additional Impressions: Multiple lacerations Injury of flexor tendon of left hand Qualified Codes: S66.802A - Unspecified injury of other specified muscles, fascia and tendons at wrist and hand level, left hand, initial encounter Additional Instructions: Follow up with hand surgeon and primary care Med/Other Pt SpecificInfo: Prescription(s) given Scripts Sulfamethoxazole-Trimethoprim (Bactrim DS) 800-160 Mg Tab 1 TAB PO BID for Infection, #10 TAB 0 Refills Prov: Rashad Byrnes MD 09/09/17 Disposition: 01 DISCHARGE HOME Condition: Stable Rashad Byrnes MD September 09, 2017 09:33
[2017-09-09 09:42] LABS: AUTOMATED NEUTROPHIL # 3.7 TH/MM3 (1.8-7.7); BASOPHIL # 0.1 TH/MM3 (0-0.2); EOSINOPHIL # 0.4 TH/MM3 (0-0.4); EOSINOPHIL % 6.3 % (0.0-4.0); HEMATOCRIT 39.4 % (39.0-51.0); HEMOGLOBIN 13.1 GM/DL (13.0-17.0); LYMPH % 33.5 % (9.0-44.0); LYMPHOCYTE # 2.3 TH/MM3 (1.0-4.8); MEAN CELL VOLUME 87.3 FL (80.0-100.0); MEAN CORPUSCULAR HEMOGLOBIN 29.1 PG (27.0-34.0); MEAN CORPUSCULAR HGB CONC 33.3 % (32.0-36.0); MEAN PLATELET VOLUME 7.7 FL (7.0-11.0); MONO % 5.3 % (0.0-8.0); MONOCYTE # 0.4 TH/MM3 (0-0.9); NEUT % 53.9 % (16.0-70.0); PLATELET COUNT 225 TH/MM3 (150-450); RED BLOOD COUNT 4.51 MIL/MM3 (4.50-5.90); RED CELL DISTRIBUTION WIDTH 13.7 % (11.6-17.2); WHITE BLOOD COUNT 6.9 TH/MM3 (4.0-11.0)
--- NOTE | 2017-09-09 09:47 | RADRPT ---
EXAM DATE: 09/09/2017 9:44 AM EDT AGE/SEX: 52 years / Male INDICATIONS: Pain from falling from a rooftop. CLINICAL DATA: This is the patient's initial encounter. Patient reports that signs and symptoms have been present for 1 day and indicates a pain score of 1/10. MEDICAL/SURGICAL HISTORY: None. None. COMPARISON: No prior [facility] exams available for comparison. FINDINGS: Examination of the pelvis demonstrates no evidence of fracture or dislocation. Bony mineralization i s normal. There is no widening of the sacroiliac joints. No foreign body is identified. CONCLUSION: Negative examination. Electronically signed by: Danial Ortiz MD 09/09/2017 9:46 AM EDT
[2017-09-09 09:51] LABS: INTERNATIONAL NORMALIZED RATIO 1.1 RATIO; PROTHROMBIN TIME - PATIENT 11.2 SEC (9.8-11.6)
--- NOTE | 2017-09-09 09:54 | RADRPT ---
EXAM DATE: 09/09/2017 9:47 AM EDT AGE/SEX: 52 years / Male INDICATIONS: Bilateral chest pain from falling off of a rooftop. CLINICAL DATA: This is the patient's initial encounter. Patient reports that signs and symptoms have been present for 1 day and indicates a pain score of 1/10. MEDICAL/SURGICAL HISTORY: None. None. COMPARISON: No prior [facility] exams available for comparison. FINDINGS: A single AP view of the chest demonstrates the lungs to be symmetrically aerated without evidence of mass, infiltrate or effusion. The cardiomediastinal contours are unremarkable. Osseous structures a re intact. CONCLUSION: 1. No acute cardiopulmonary disease. Electronically signed by: Jhoan Donaldson MD 09/09/2017 9:53 AM EDT
[2017-09-09 09:57] LABS: BICARBONATE 19.7 MEQ/L (21.0-32.0); CALCIUM 9.2 MG/DL (8.5-10.1); CREATININE 1.26 MG/DL (0.60-1.30)
[2017-09-09 10:18] VITALS: BP 108/67; PULSE 57; RESP 15; TEMP 97.8; O2SAT 97
[2017-09-09] MEDS: LIDOCAINE HCL 1% PF 30 ML VIAL INFIL ONE ×2 (10:46→10:51)
--- NOTE | 2017-09-09 11:26 | PD ---
Physical Exam Date Seen by Provider: September 09, 2017 Time Seen by Provider: 11:24 Narrative 52-year-old male who presents to the ED for evaluation of laceration to his left fingers. Please refer to my attendings note. I was asked to speak with hand surgeon. Data Data Last Documented VS Vital Signs Date Time Temp Pulse Resp B/P (MAP) Pulse Ox O2 Delivery O2 Flow Rate FiO2 09/09/17 10:18 97.8 57 15 108/67 (81) 97 Room Air Orders Orders Chest, Single Ap (09/09/17 ) Pelvis, Ap Only (Routine) (09/09/17 ) Iv Access Insert/Monitor (09/09/17 09:22) Complete Blood Count With Diff (09/09/17 09:22) Basic Metabolic Panel (Bmp) (09/09/17 09:22) Prothrombin Time / Inr (Pt) (09/09/17 09:22) Act Partial Throm Time (Ptt) (09/09/17 09:22) Lidocaine Pf 1% Inj (Xylocaine-Mpf 1% In (09/09/17 10:30) Splint Or Brace Apply/Monitor (09/09/17 11:22) Mandatory Outpatient Referral (09/09/17 11:22) Labs Laboratory Tests Test 09/09/17 09:25 White Blood Count 6.9 TH/MM3 Red Blood Count 4.51 MIL/MM3 Hemoglobin 13.1 GM/DL Hematocrit 39.4 % Mean Corpuscular Volume 87.3 FL Mean Corpuscular Hemoglobin 29.1 PG Mean Corpuscular Hemoglobin Concent 33.3 % Red Cell Distribution Width 13.7 % Platelet Count 225 TH/MM3 Mean Platelet Volume 7.7 FL Neutrophils (%) (Auto) 53.9 % Lymphocytes (%) (Auto) 33.5 % Monocytes (%) (Auto) 5.3 % Eosinophils (%) (Auto) 6.3 % Basophils (%) (Auto) 1.0 % Neutrophils # (Auto) 3.7 TH/MM3 Lymphocytes # (Auto) 2.3 TH/MM3 Monocytes # (Auto) 0.4 TH/MM3 Eosinophils # (Auto) 0.4 TH/MM3 Basophils # (Auto) 0.1 TH/MM3 CBC Comment DIFF FINAL Differential Comment Prothrombin Time 11.2 SEC Prothromb Time International Ratio 1.1 RATIO Activated Partial Thromboplast Time 24.1 SEC Blood Urea Nitrogen 22 MG/DL Creatinine 1.26 MG/DL Random Glucose 209 MG/DL Calcium Level 9.2 MG/DL Sodium Level 138 MEQ/L Potassium Level 4.0 MEQ/L Chloride Level 108 MEQ/L Carbon Dioxide Level 19.7 MEQ/L Anion Gap 10 MEQ/L Estimat Glomerular Filtration Rate 60 ML/MIN MDM Medical Record Reviewed: Yes Supervised Visit with IVETTE: No Narrative Course I spoke with Dr. Fajardo over the phone who was made aware of high concern for flexor tendon laceration to the distal fingers in 5th and 4th digits. She recommends that we suture him up start him on antibiotics and put on a ice cream scoop splint and follow up in his office. Start him on antibiotics. This was made aware to the patient and my attending Dr Byrnes who agrees with plan. I spoke with [facility] and he agrees and understands splint. Referrals: Felton Fajardo III, MD Scripts Sulfamethoxazole-Trimethoprim (Bactrim DS) 800-160 Mg Tab 1 TAB PO BID for Infection, #10 TAB 0 Refills Prov: Rashad Byrnes MD 09/09/17 Bob Live September 09, 2017 11:26
[2017-09-09] MEDS ORDERED: BACT800T5 PO (11:30)
--- NOTE | 2017-09-09 11:39 | PD ---
Physical Exam Time Seen by Provider: 11:34 Data Data Last Documented VS Vital Signs Date Time Temp Pulse Resp B/P (MAP) Pulse Ox O2 Delivery O2 Flow Rate FiO2 09/09/17 10:18 97.8 57 15 108/67 (81) 97 Room Air Orders Orders Chest, Single Ap (09/09/17 ) Pelvis, Ap Only (Routine) (09/09/17 ) Iv Access Insert/Monitor (09/09/17 09:22) Complete Blood Count With Diff (09/09/17 09:22) Basic Metabolic Panel (Bmp) (09/09/17 09:22) Prothrombin Time / Inr (Pt) (09/09/17 09:22) Act Partial Throm Time (Ptt) (09/09/17 09:22) Lidocaine Pf 1% Inj (Xylocaine-Mpf 1% In (09/09/17 10:30) Splint Or Brace Apply/Monitor (09/09/17 11:22) Mandatory Outpatient Referral (09/09/17 11:22) Labs Laboratory Tests Test 09/09/17 09:25 White Blood Count 6.9 TH/MM3 Red Blood Count 4.51 MIL/MM3 Hemoglobin 13.1 GM/DL Hematocrit 39.4 % Mean Corpuscular Volume 87.3 FL Mean Corpuscular Hemoglobin 29.1 PG Mean Corpuscular Hemoglobin Concent 33.3 % Red Cell Distribution Width 13.7 % Platelet Count 225 TH/MM3 Mean Platelet Volume 7.7 FL Neutrophils (%) (Auto) 53.9 % Lymphocytes (%) (Auto) 33.5 % Monocytes (%) (Auto) 5.3 % Eosinophils (%) (Auto) 6.3 % Basophils (%) (Auto) 1.0 % Neutrophils # (Auto) 3.7 TH/MM3 Lymphocytes # (Auto) 2.3 TH/MM3 Monocytes # (Auto) 0.4 TH/MM3 Eosinophils # (Auto) 0.4 TH/MM3 Basophils # (Auto) 0.1 TH/MM3 CBC Comment DIFF FINAL Differential Comment Prothrombin Time 11.2 SEC Prothromb Time International Ratio 1.1 RATIO Activated Partial Thromboplast Time 24.1 SEC Blood Urea Nitrogen 22 MG/DL Creatinine 1.26 MG/DL Random Glucose 209 MG/DL Calcium Level 9.2 MG/DL Sodium Level 138 MEQ/L Potassium Level 4.0 MEQ/L Chloride Level 108 MEQ/L Carbon Dioxide Level 19.7 MEQ/L Anion Gap 10 MEQ/L Estimat Glomerular Filtration Rate 60 ML/MIN MDM Medical Record Reviewed: Yes Supervised Visit with IVETTE: Yes Narrative Course I was asked by Dr. Worthy to repair a laceration on this patient. Please see his note for further details. Procedures Procedure Narrative LACERATION LOCATION: Left dorsal fifth finger just above the PIP joint LENGTH: 1 cm NUMBER OF STITCHES/KANWAL: 4 REPAIR: The area of the laceration was prepped with Betadine and sterilely draped. The laceration was infiltrated with 1% lidocaine. The wound was copiously irrigated and explored without evidence of foreign body, tendon injury or neurovascular injury. The wound was closed using 5-0 Prolene. This was a single layer repair. A sterile dressing was applied. The patient was advised to keep the dressing clean and dry. Patient tolerated the procedure well. LACERATION LOCATION: Left dorsal fourth finger just above the PIP joint LENGTH: 1 cm NUMBER OF STITCHES/KANWAL: 4 REPAIR: The area of the laceration was prepped with Betadine and sterilely draped. The laceration was infiltrated with 1% lidocaine. The wound was copiously irrigated and explored without evidence of foreign body, tendon injury or neurovascular injury. The wound was closed using 5-0 Prolene. This was a single layer repair. A sterile dressing was applied. The patient was advised to keep the dressing clean and dry. Patient tolerated the procedure well. LACERATION LOCATION: Left dorsal third finger just above the PIP joint LENGTH: 1 cm NUMBER OF STITCHES/KANWAL: 4 REPAIR: The area of the laceration was prepped with Betadine and sterilely draped. The laceration was infiltrated with 1% lidocaine. The wound was copiously irrigated and explored without evidence of foreign body, tendon injury or neurovascular injury. The wound was closed using 5-0 Prolene. This was a single layer repair. A sterile dressing was applied. The patient was advised to keep the dressing clean and dry. Patient tolerated the procedure well. LACERATION: LOCATION: Right hypothenar eminence LENGTH: 1 cm NUMBER OF STITCHES/KANWAL: 3 REPAIR: The area of the laceration was prepped with Betadine and sterilely draped. The laceration was infiltrated with 1% lidocaine. The wound was copiously irrigated and explored without evidence of foreign body, tendon injury or neurovascular injury. The wound was closed using 5-0 Prolene. This was a single layer repair. A sterile dressing was applied. The patient was advised to keep the dressing clean and dry. Patient tolerated the procedure well. Scripts Sulfamethoxazole-Trimethoprim (Bactrim DS) 800-160 Mg Tab 1 TAB PO BID for Infection, #10 TAB 0 Refills Prov: Rashad Byrnes MD 09/09/17 Azeb Hernandez September 09, 2017 11:39
[2017-09-09 12:56] VITALS: BP 133/77; TEMP 98
[2017-09-14] MEDS ORDERED: CEPH-460 PO (12:30)
[2017-09-14] MEDS ORDERED: HYDR-3288 PO (12:30)
== END 2017-09-09 12:58 | disposition home or self-care (01) ==
LOC: NEPC 08:28
DX: S61.412A Laceration without foreign body of left hand, initial encounter (principal); S61.411A Laceration without foreign body of right hand, initial encounter; S66.802A Unspecified injury of other specified muscles, fascia and tendons at wrist and hand level, left hand, initial encounter; W13.2XXA Fall from, out of or through roof, initial encounter
CPT/HCPCS: 12013; 71045; 72170; 80048; 85025; 85610; 85730

== ENCOUNTER → 2017-09-14 | Day surgery (SDC) | payer OTHER ==
[~2017-09-14] VITALS: Ht 175.3 cm; Wt 82.0 kg
[~2017-09-14] MED LIST changes: +ACETAMINOPHEN 1000 MG/100 ML 100 ML IV ONE; +BACT800T5 PO; +BUPIVACAINE HCL PF 0.5% 10 ML VIAL ONE; +CEPH-460 PO; +CHLORHEXIDINE GLUCONATE 2 % 1 PACK (2 CLOTHS) TOPICAL PRN; -DEXAMETHASONE SOD PHOS 4 MG/ML VIAL IV ONE; -GENTAMICIN SULFATE 80 MG/2 ML VIAL OTHER ONE; +HYDR-3288 PO; -LACTATED RINGER'S 1000 ML INJ 2,000 ML IV ONE; +LACTATED RINGER'S 1000 ML IV PRN; -LIDOCAINE HCL 1% PF 5 ML AMPULE OTHER ONE; +LIDOCAINE HCL 2% 50 ML VIAL ONE; +METOPROLOL TARTRATE 25 MG TAB PO PRN; -MIDAZOLAM HCL 2 MG/2 ML VIAL IV ONE; +MIDAZOLAM HCL 2 MG/2 ML VIAL ONE; +NEOMYCIN/POLYMYXIN 1 ML G.U. IRRIGANT ONE; -ONDANSETRON HCL 4 MG/2 ML VIAL IV PUSH ONE; +POVIDONE IODINE 5% (ANTISEPSIS KIT) 4 APPLICATIONS EACH NARE PRN; -PROPOFOL 200 MG/20 ML AMP IV ONE; -ROCURONIUM INJ 50 MG/5 ML SYRINGE IV PUSH ONE; +SODIUM CHLORID 0.9% 500 ML IV PRN; +ceFAZolin 1,000 MG/NS 100 ML IV SCH; -fentaNYL CITRATE 250 MCG/5 ML AMP IV ONE; +fentaNYL CITRATE 250 MCG/5 ML AMP ONE
--- NOTE | 2017-09-14 13:30 | MP ---
cc: Felton Fajardo MD DATE OF OPERATION: 09/14/2017 PREOPERATIVE DIAGNOSIS: Laceration left third, fourth, and fifth fingers. PROCEDURE PERFORMED: 1. Exploration of the left third finger penetrating wound. 2. Exploration left 4th finger and repair of flexor digitorum superficialis tendon and flexor digitorum profundus tendon. 3. Exploration of the left 5th finger and repair of flexor digitorum profundus tendon. 4. Left 5th A1 wade release. DESCRIPTION OF PROCEDURE: The patient was brought to the operating room, and placed supine on the operating table. After the correct side and site of surgery were verified by members of each team in the room multiple times including the patient, myself and after adequate preoperative markings, preoperative written consent were verified by everyone and after adequate preoperative timeout was performed to everyone's satisfaction, after adequate general anesthesia was achieved, the left upper extremity was prepped and draped in traditional sterile surgical fashion. A 50:50 mixture of 2% plain lidocaine and 0.5% plain Marcaine was infiltrated in the skin and subcutaneous tissue in the palm for metacarpal level block. The limb was exsanguinated and a gentle [place] wrap and highly placed well-padded axillary tourniquet was inflated to 200 mmHg for 93 minutes. The third finger was addressed first. The sutures were removed. Exploration revealed penetration into the flexor sheath, but did not injure the A2 or the A4 pulleys or either of the flexor tendons. There were no obvious anatomic abnormalities. Tendons were examined fully. Thorough irrigation with saline was performed. The skin edges were then reapproximated using 5-0 nylon sutures. The fourth finger sutures were removed and Jaime style incisions centering over the PIP joint volarly were made. Blunt dissection was performed. Hematoma within the flexor sheath was encountered. The A3 wade was opened. The ulnar leg of the FDS tendon as well as the entire FDP tendon were transected. Thorough irrigation was performed after cultures were obtained. The FDS tendon was reapproximated using [id number] 4-0 Mersilene suture. Following this, the ends of the FDP were retracted together without injuring the A2 or the A4 pulleys and using 3-0 Prolene sutures on taper needles in locking and nonlocking Suresh fashion were reapproximated primarily in end-to-end fashion and then reinforced giving them a 6 core strand repair. Tenodesis was performed and showed good excursion of the flexor tendons. There was no bunching of the tendon and there was no catching on the pulleys. Thorough irrigation was performed. The A2 and A4 pulleys were still intact. Skin edges were then reapproximated using interrupted running 5-0 nylon suture. The 5th finger was then incised in the same way and the flexor tendon sheath was examined and found to have a hematoma. The A3 wade was opened. The FDS tendon was completely intact, but the FDP was transected. The FTP could not be retrieved from the finger, so an incision over the A1 wade was made, carried down through skin and subcutaneous tissue. Bipolar electrocautery was used as needed. The A1 wade was opened and the FDP tendon was found retracted into the proximal aspect of the palm, almost the carpal tunnel. It was then brought out through the flexor sheath and the FDP tendon was repaired in the exact same way as the 4th finger giving a 6 core strand repair. There were no other anatomic abnormalities identified. A2 and the A4 pulleys were intact. There were no other anatomic abnormalities. Thorough irrigation was performed. The skin edges of the 2 wounds were then thoroughly irrigated out with saline and reapproximated using running interrupted 5-0 nylon suture. The hand and arm were thoroughly cleansed and dried. Additional local anesthetic was injected intrathecally for postoperative pain control. The hand and arm were thoroughly cleansed and dried. Betadine, Adaptic dressings were applied on top of the wounds, followed by a bulky soft, well-padded, well-molded dorsal blocking splint with all 4 fingers in ice cream scoop position. The axillary tourniquet was released prior to the closure. The hand and all fingers became immediately soft, pink, warm and had brisk capillary refill of less than 2 seconds. The patient was awakened from anesthesia and transferred to the postanesthesia care unit awake and in stable condition. The sponge, needle, and instrument counts were correct at the end of the case as reported by nurses in the room. MD MARY Almanza/HARMONY , 12:25 PM , 01:29 PM
[2017-09-14 15:30] VITALS: BP 136/83; PULSE 81; RESP 16; TEMP 98; O2SAT 98
== END | disposition home or self-care (01) ==
LOC: PHSDC 06:57
PROVIDERS: ATTEND Orthopaedic Surgery Hand Surgery
DX: S61.213A Laceration without foreign body of left middle finger without damage to nail, initial encounter (principal); S66.124A Laceration of flexor muscle, fascia and tendon of right ring finger at wrist and hand level, initial encounter; S66.127A Laceration of flexor muscle, fascia and tendon of left little finger at wrist and hand level, initial encounter
CPT/HCPCS: 01810; 20103; 26350; 26356; 86403; 87015; 87070; 87102; 87116; 87205; 87206; J0131; J0690; J2250; J3010; J7120